=== PATIENT | male | born 1965 | race Caucasian/White ===

== ENCOUNTER 2018-04-19 09:51 | Emergency (ER) | payer BC ==
[2018-04-19 09:52] VITALS: BMI 30.7
--- NOTE | 2018-04-19 10:52 | ED PDOC ---
Arrival/HPI - General Chief Complaint: Weakness/Neurological Deficit Time Seen by Provider: 04/19/18 10:27 Historian: Patient - History of Present Illness Narrative History of Present Illness (Text): 04/19/18 10:49 52yo male with pmhx of Diabetes who present with complaint of feeling tired, having mild headache and SOB while at work this morning. Notes that all the symptoms resolved, except the mild headache. Han he was diagnosed with Diabetes 2months ago and has been on Metformin. He notes that he has not been checking his BS because he recently moved and couldn't find his glucometer. He denies polyuria/phagia/dipsia, feve, chills, abdominal pain, chest pain, diarrhea, nausea, vomiting, diaphoresis, any other complaint. Past Medical History - Provider Review Nursing Documentation Reviewed: Yes - Infectious Disease Hx of Infectious Diseases: None - Cardiac Hx Hypertension: Yes - Pulmonary Hx Tuberculosis: No - Neurological HX Cerebrovascular Accident: No Hx Seizures: No - Hematological/Oncological Hx Cancer: No - Genitourinary/Gynecological Hx Sexually Transmitted Diseases: No - Psychiatric Hx Depression: Yes Hx Physical Abuse: No Hx Substance Use: No - Surgical History Other/Comment: neck Family/Social History - Physician Review Nursing Documentation Reviewed: Yes Family/Social History: Unknown Family HX Smoking Status: Never Smoked Hx Alcohol Use: No Hx Substance Use: No Allergies/Home Meds Allergies/Adverse Reactions: Allergies Penicillins Allergy (Verified 04/19/18 10:25) ANAPHYLAXIS seafood Allergy (Uncoded 04/19/18 10:25) ANAPHYLAXIS Review of Systems - Physician Review All systems were reviewed & negative as marked: Yes - Review of Systems Constitutional: Fatigue Eyes: Normal ENT: Normal Respiratory: Normal Cardiovascular: Normal Gastrointestinal: Normal Genitourinary Male: Normal Musculoskeletal: Normal Skin: Normal Neurological: Headache. absent: Dizziness, Focal Weakness, Gait Changes Endocrine: Normal Hemo/Lymphatic: Normal Psychiatric: Normal Physical Exam Vital Signs Reviewed: Yes Vital Signs Pulse Resp BP Pulse Ox 04/19/18 12:28 62 18 134/85 99 04/19/18 10:25 57 L 17 137/98 H 98 Temperature: Afebrile Blood Pressure: Normal Pulse: Regular Respiratory Rate: Normal Appearance: Positive for: Well-Appearing, Non-Toxic, Comfortable Pain Distress: None Mental Status: Positive for: Alert and Oriented X 3 - Systems Exam Head: Present: Atraumatic, Normocephalic Pupils: Present: PERRL Extroacular Muscles: Present: EOMI Conjunctiva: Present: Normal Mouth: Present: Moist Mucous Membranes Neck: Present: Normal Range of Motion Respiratory/Chest: Present: Clear to Auscultation, Good Air Exchange. No: Respiratory Distress, Accessory Muscle Use Cardiovascular: Present: Regular Rate and Rhythm, Normal S1, S2. No: Murmurs Abdomen: No: Tenderness, Distention, Peritoneal Signs Back: Present: Normal Inspection Upper Extremity: Present: Normal Inspection. No: Cyanosis, Edema Lower Extremity: Present: Normal Inspection. No: Edema Neurological: Present: GCS=15, CN II-XII Intact, Speech Normal, Motor Func Grossly Intact, Normal Sensory Function, Normal Cerebellar Funct, Norm Deep Tendon Reflexes, Gait Normal, Normal 2Pt Descrimination, Other (No focal neurological deficit) Skin: Present: Warm, Dry, Normal Color. No: Rashes Psychiatric: Present: Alert, Oriented x 3, Normal Insight, Normal Concentration Medical Decision Making ED Course and Treatment: 04/19/18 20:01 PT remain hemodyanically stable and neurologically intact in ED . Lab was reviewed and unremarkable. He states he didn't eat much after taking his antihypoglycemics. I suspect hypoglycemic episode. He was strongly advised to eat when he takes his medication and referred to his PMD. - Lab Interpretations Lab Results: 04/19/18 11:15 04/19/18 11:15 Lab Results 04/19/18 11:15: Sodium 142, Chloride 107, Potassium 4.4, Carbon Dioxide 27, Anion Gap 13, BUN 18, Creatinine 0.9, Est GFR ( Amer) > 60, Est GFR (Non- Af Amer) > 60, Random Glucose 97, Calcium 9.2, Magnesium 1.9, Total Bilirubin 0.8, AST 29, ALT 34, Alkaline Phosphatase 66, Lactate Dehydrogenase 443, Total Creatine Kinase 107, Troponin I < 0.01, NT-Pro-B Natriuret Pep 13.7, Total Protein 7.4, Albumin 4.0, Globulin 3.4, Albumin/Globulin Ratio 1.2 04/19/18 11:15: pO2 60 H, VBG pH 7.35, VBG pCO2 48.0, VBG HCO3 26.5, VBG Total CO2 28.0, VBG O2 Sat (Calc) 93.1 H, VBG Base Excess 0.3, VBG Potassium 4.6, Sodium 138.0, Chloride 108.0 H, Glucose 98, Lactate 1.0, FiO2 21.0, Venous Blood Potassium 4.6 04/19/18 11:15: Urine Color Yellow, Urine Appearance Clear, Urine pH 6.5, Ur Specific [place] <= 1.005, Urine Protein Negative, Urine Glucose (UA) Negative, Urine Ketones Negative, Urine Blood Negative, Urine Nitrate Negative, Urine Bilirubin Negative, Urine Urobilinogen 0.2, Ur Leukocyte Esterase Negative 04/19/18 11:15: PT 10.9, INR 0.95, APTT 27.7 04/19/18 11:15: WBC 8.9 D, RBC 4.69, Hgb 14.2, Hct 40.1 L, MCV 85.5, MCH 30.3, MCHC 35.4, RDW 12.8, Plt Count 212, MPV 10.5, Gran % 70.1 H, Lymph % (Auto) 23.1 , [place] % (Auto) 5.4, Eos % (Auto) 1.1 L, Baso % (Auto) 0.3, Gran # 6.21, Lymph # (Auto) 2.1, [place] # (Auto) 0.5, Eos # (Auto) 0.1, Baso # (Auto) 0.03 - RAD Interpretation Radiology Orders: 04/19/18 10:46 CHEST PORTABLE [RAD] Stat - Medication Orders Current Medication Orders: Discontinued Medications Acetaminophen (Tylenol 325mg Tab) 650 mg PO STAT STA Stop: 04/19/18 11:56 Last Admin: 04/19/18 12:23 Dose: 650 mg MAR Pain/Vitals Document 04/19/18 12:23 SF (Rec: 04/19/18 12:23 SF [email or web address]) Pain Reassessment Is This A Pain ReAssessment? Yes Sleep Is patient sleeping during reassessment? No Presence of Pain Presence of Pain Yes Sodium Chloride (Sodium Chloride 0.9%) 1,000 mls @ 999 mls/hr IV .Q1H1M STA Stop: 04/19/18 12:51 Last Admin: 04/19/18 11:55 Dose: 999 mls/hr eMAR Start Stop Document 04/19/18 11:55 SF (Rec: 04/19/18 12:21 SF [id number]) Intravenous Solution Start Date 04/19/18 Start Time 11:55 End Date 04/19/18 End time 12:30 Total Infusion Time 35 Disposition/Present on Arrival - Present on Arrival Any Indicators Present on Arrival: No History of DVT/PE: No History of Uncontrolled Diabetes: No Urinary Catheter: No History of Decub. Ulcer: No History Surgical Site Infection Following: None - Disposition Have Diagnosis and Disposition been Completed?: Yes Diagnosis: Headache, Weakness Disposition: HOME/ ROUTINE Disposition Time: 12:10 Patient Plan: Discharge Condition: STABLE Discharge Instructions (ExitCare): Generalized Weakness (DC), Headache, Adult ( DC), Weakness (ED) Additional Instructions: Follow up with your Doctor Return to ED for any new symptoms Referrals: Zakia Freitas MD [Family Provider] - Follow up with primary Forms: [employer] (K[place]akh)
--- NOTE | 2018-04-19 11:08 | RAD ---
HISTORY: Shortness of breath COMPARISON: 06/23/2016. FINDINGS: LUNGS: The lungs are well inflated and clear. PLEURA: No significant pleural effusion identified, no pneumothorax apparent. CARDIOVASCULAR: Normal. OSSEOUS STRUCTURES: No significant abnormalities. VISUALIZED UPPER ABDOMEN: Normal. OTHER FINDINGS: None. IMPRESSION: No active pulmonary disease.
[2018-04-19 11:44] LABS: VENOUS BLOOD GAS BASE EXCESS 0.3 mmol/L (0.0-2.0); VENOUS BLOOD GAS PO2 60 mm/Hg (30-55); VENOUS BLOOD PH 7.35 (7.32-7.43)
[2018-04-19 11:49] LABS: BASO # 0.03 K/mm3 (0.0-2.0); BASO % 0.3 % (0.0-3.0); EOS # 0.1 (0.0-0.7); EOS % 1.1 % (1.5-5.0); GRAN # 6.21 (1.4-6.5); GRAN % 70.1 % (50.0-68.0); HEMOGLOBIN 14.2 g/dL (14.0-18.0); LYMPH # 2.1 (1.2-3.4); LYMPH % 23.1 % (22.0-35.0); MEAN CELL VOLUME 85.5 fl (80.0-105.0); MEAN CORPUSCULAR HEMOGLOBIN 30.3 pg (25.0-35.0); MEAN CORPUSCULAR HGB CONC 35.4 g/dl (31.0-37.0); MEAN PLATELET VOLUME 10.5 fl (7.0-11.0); MONO # 0.5 (0.1-0.6); MONO % 5.4 % (1.0-6.0); RBC 4.69 10^6/uL (3.5-6.1); RED CELL DISTRIBUTION WIDTH 12.8 % (11.5-14.5); WHITE BLOOD COUNT 8.9 10^3/ul (4.5-11.0)
[2018-04-19] MEDS ORDERED: Sodium Chloride 0.9% 1,000 ML IV STA (11:51)
[2018-04-19 11:53] LABS: ALB/GLOB RATIO 1.2 (1.1-1.8); ALT/SGPT 34 U/L (7-56); AST/SGOT 29 U/L (17-59); BLOOD UREA NITROGEN 18 mg/dL (7-21); CALCIUM 9.2 mg/dL (8.4-10.5); GFR NON-AFRICAN AMERICAN > 60
[2018-04-19 11:54] LABS: INR 0.95 (0.93-1.08); PARTIAL THROMBOPLASTIN TIME 27.7 Seconds (25.1-36.5); PROTHROMBIN TIME 10.9 SECONDS (9.4-12.5)
[2018-04-19 12:02] LABS: B-TYPE NATRIURETIC PEPTIDE 13.7 pg/mL (0-450)
[2018-04-19 12:03] LABS: PH,URINE 6.5 (4.7-8.0); URINE BILIRUBIN NEGATIVE (NEGATIVE); URINE BLOOD NEGATIVE (NEGATIVE); URINE GLUCOSE (UA) NEGATIVE (NEGATIVE); URINE LEUKOCYTE ESTERASE NEGATIVE Leu/uL (NEGATIVE); URINE PROTEIN NEGATIVE mg/dL (<30 mg/dL); URINE UROBILINOGEN 0.2 E.U./dL (<1 E.U./dL)
[2018-04-19 12:05] LABS: URINE APPEARANCE CLEAR (CLEAR); URINE COLOR YELLOW (YELLOW)
[2018-04-19 12:06] LABS: TROPONIN I < 0.01 ng/mL
[2018-04-19 12:29] VITALS: BP 134/85; PULSE 62; RESP 18; O2SAT 99
--- NOTE | 2018-04-19 22:49 | CARD ---
APPROVED REPORT EKG Measurement Heart [id number] [place] 140P15 [id number] <Conclusion> Sinus bradycardia Otherwise normal ECG
== END 2018-04-19 12:28 | disposition home or self-care (01) ==
LOC: ED 09:51
DX: R51 Headache (principal); R53.1 Weakness; E11.9 Type 2 diabetes mellitus without complications; I10 Essential (primary) hypertension
CPT/HCPCS: 71045; 80053; 81003; 82550; 82803; 83615; 83735; 83880; 84484; 85025; 85610; 85730; 93005; 96360; 99285; J7030